=== PATIENT | female | born 1995 | race Two or more races ===

== ENCOUNTER 2021-02-25 12:56 | Emergency (ER) | payer MEDICAID, OTHER ==
[~2021-02-25] VITALS: Ht 170.2 cm; Wt 59.0 kg
[2021-02-25 13:01] VITALS: BP 129/97
[2021-02-25 13:12] LABS: BILIRUBIN,URINE Negative (NEGATIVE); COLOR,URINE YELLOW (YELLOW); LEUKOCYTE ESTERASE ,URINE Negative (NEGATIVE); NITRITE, URINE Negative (NEGATIVE); PROTEIN,URINE Negative (NEGATIVE); UGLUCOSE Negative (NEGATIVE); UROBILINOGEN,URINE 0.2 EU/dL (0.2)
[2021-02-25] MEDS ORDERED: CLOT21CR VG (13:25)
[2021-02-25] MEDS ORDERED: FLUCONAZOLE (100 MG) 100 MG TABLET ONE (13:27)
[2021-02-25] MEDS ORDERED: FLUCONAZOLE (100 MG) 100 MG TABLET PO ONE (13:30)
--- NOTE | 2021-02-25 13:36 | NUR ---
Patient discharged to home in stable condition. Written and verbal after care instructions given. Patient verbalizes understanding of instruction. Pt ambulatory with a steady gait
== END 2021-02-25 13:37 | disposition home or self-care (01) ==
LOC: ER 12:56
DX: N76.0 Acute vaginitis (principal)
CPT/HCPCS: 84703-TC